=== PATIENT | male | born 2005 | race Caucasian/White ===

== ENCOUNTER 2024-01-05 02:46 | Emergency (ER) | payer OTHER ==
[~2024-01-05] VITALS: Ht 177.8 cm; Wt 90.9 kg
[2024-01-05 02:58] VITALS: TEMP 98
[2024-01-05] MEDS ORDERED: LR 1,000 ML IV ONE (03:30)
[2024-01-05] MEDS ORDERED: Ondansetron 4 MG/2 ML VIAL IV ONE (03:30)
[2024-01-05 08:24] VITALS: BP 94/52; PULSE 93
== END 2024-01-05 08:24 | disposition home or self-care (01) ==
LOC: COL.ER 02:46
DX: S00.01XA Abrasion of scalp, initial encounter (principal); W18.30XA Fall on same level, unspecified, initial encounter
CPT/HCPCS: J2405; J7120